=== PATIENT | female | born 1965 | race Caucasian/White ===

== ENCOUNTER 2016-07-13 08:23 | Outpatient (CLI) | payer BC ==
[2016-07-13 12:48] LABS: Hemoglobin A1c 4.8 % (4.0-6.0)
[2016-07-13 12:50] LABS: ALT (SGPT) 94 U/L (0-55); AST (SGOT) 65 U/L (5-34); Alkaline Phosphatase 92 U/L (40-150); Anion Gap 15 mmol/L (10-20); BUN (Urea Nitrogen) 13 mg/dL (9.8-20.1); Bilirubin, Total 0.7 mg/dL (0.2-1.2); Calc. Creatinine Clearance 0 mL/min (70-130); Calcium 9.5 mg/dL (7.8-10.44); Carbon Dioxide 20 mmol/L (22-29); Chloride 111 mmol/L (98-107); Estimated GFR-MDRD Greater than 90; Globulin 3.6 g/dL (2.4-3.5); LDL Cholesterol, Calculated 44 mg/dL
[2016-07-13 12:53] LABS: Bilirubin Negative (Negative); Blood, Urine Negative (Negative); Glucose, Urine (Dipstick) Negative (Negative); Ketone, Urine Trace mg/dL (Negative); Nitrite Negative (Negative); Protein, Urine (Dipstick) Negative (Neg-Trace); Urobilinogen 0.2 mg/dL (0.2-1.0)
[2016-07-13 14:09] LABS: Bacteria/HPF Rare-Few HPF (None Seen); RBC/HPF None Seen HPF (0-3); Squamous Epithelial 0-3 HPF (0-3)
[2016-07-13 15:02] LABS: Hematocrit 40.9 % (36.0-47.0); Macrocytosis SLIGHT = 6-15 cells (100X) (0-5/hpf); Mean Platelet Volume 7.5 fL (7.4-10.4); Neutrophil 56 % (42-75); Red Blood Cell (RBC) Count 3.81 mill/uL (4.20-5.40); White Blood Cell (WBC) Count 4.9 thou/uL (4.8-10.8)
== END 2016-07-13 08:24 ==
LOC: NAVSJIPCSP 08:23
PROVIDERS: ATTEND Internal Medicine
DX: Z51.81 Encounter for therapeutic drug level monitoring (principal); Z79.899 Other long term (current) drug therapy
CPT/HCPCS: 36415; 80053; 80061; 81003; 81015; 83036; 84443; 85025

== ENCOUNTER 2020-11-06 10:17 | Outpatient (CLI) | payer BC | END 2020-11-06 10:18 | disposition home or self-care (01) | LOC: NAV RAD 10:17 | PROVIDERS: ATTEND Family Medicine | DX: R07.81 Pleurodynia (principal); R09.1 Pleurisy | CPT/HCPCS: 71046 ==

== ENCOUNTER 2020-11-17 01:05 | Emergency (ER) | payer BC ==
[2020-11-17] MEDS ORDERED: Ketorolac Tromethamine 30 MG/ML VIAL ONE (01:23)
[2020-11-17] MEDS ORDERED: Ondansetron PF 4 MG/2 ML Vial ONE (01:50)
[2020-11-17] MEDS ORDERED: Acetaminophen/Codeine 30-300mg Tablet ONE (01:50)
[2020-11-17] MEDS ORDERED: methylPREDNISolone Sod Succ/PF 125 MG/2 ML VIAL ONE (02:23)
== END 2020-11-17 02:37 | disposition home or self-care (01) ==
LOC: NAV ERS 01:05
DX: R09.1 Pleurisy (principal); I10 Essential (primary) hypertension; F17.210 Nicotine dependence, cigarettes, uncomplicated
CPT/HCPCS: 71045; 93005; 96374; 96375; J1885; J2405; J2930

== ENCOUNTER → 2021-03-06 | Emergency (ER) | payer BC ==
[~2021-03-06] MED LIST: Cefepime 2 GM VIAL ONE; Metoclopramide HCl 10 MG/2 ML VIAL ONE; Sodium Chloride 0.9% 1,000 ML ONE; Sodium Chloride 0.9% 100 ML ONE; Sodium Chloride 0.9% 250 ML 250 ML ONE; Vancomycin HCl 500 MG VIAL ONE; diphenhydrAMINE 50 MG/ML VIAL ONE
[2021-03-06 14:28] LABS: ALT (SGPT) 26 U/L (8-55); AST (SGOT) 30 U/L (5-34); Albumin 4.1 g/dL (3.5-5.0); Alkaline Phosphatase 87 U/L (40-110); Anion Gap 13 mmol/L (10-20); BUN (Urea Nitrogen) 35 mg/dL (9.8-20.1); Bilirubin, Total 1.2 mg/dL (0.2-1.2); Calc. Creatinine Clearance 0 mL/min (70-130); Calcium 10.1 mg/dL (7.8-10.44); Carbon Dioxide 20 mmol/L (22-29); Chloride 106 mmol/L (98-107); Globulin 3.4 g/dL (2.4-3.5); Glucose 113 mg/dL (70-105); Potassium 3.7 mmol/L (3.5-5.1); Protein, Total 7.5 g/dL (6.0-8.3); Sodium 135 mmol/L (136-145)
[2021-03-06 14:35] LABS: Hemoglobin 12.7 g/dL (12.0-16.0); Mean Corpuscular HGB CONC 33.9 g/dL (32.0-36.0); Mean Corpuscular Hemoglobin 32.4 pg (27.0-31.0); Mean Corpuscular Volume 95.3 fL (78.0-98.0); Mean Platelet Volume 7.4 fL (7.4-10.4); Platelet Count 217 thou/uL (130-400); RBC Distribution Width 11.9 % (11.5-14.5); Red Blood Cell (RBC) Count 3.91 mill/uL (4.20-5.40); White Blood Cell (WBC) Count 20.4 thou/uL (4.8-10.8)
[2021-03-06 14:39] LABS: Lymphocytes 4 % (21-51); MDiff Complete? YES; Monocytes 8 % (0-10); Neutrophil 88 % (42-75); Platelet Morphology Comment Appears Adequate
[2021-03-06 15:48] LABS: Bilirubin Negative (Negative); Blood, Urine Negative (Negative); Clarity Slightly Cloudy (Clear); Glucose, Urine (Dipstick) Negative (Negative); Ketone, Urine Negative (Negative); Leukocyte Negative (Negative); Nitrite Negative (Negative); Protein, Urine (Dipstick) Negative (Neg-Trace); Urobilinogen 0.2 mg/dL (Less than 2)
== END ==
LOC: NAV ERS 12:52
DX: A41.9 Sepsis, unspecified organism (principal); I10 Essential (primary) hypertension; F17.210 Nicotine dependence, cigarettes, uncomplicated; Z79.899 Other long term (current) drug therapy
CPT/HCPCS: 71045; 80053; 81003; 83605; 85025; 87040; 96365; 96367; 96375; J0692; J1200; J2765; J3370; J3490; J7050

== ENCOUNTER 2021-12-23 09:14 | Emergency (ER) | payer BC ==
[2021-12-23] MEDS ORDERED: Pantoprazole 40 MG VIAL ONE (10:18)
[2021-12-23] MEDS ORDERED: Sodium Chloride 0.9% 1,000 ML ONE ×2 (10:18→11:47)
[2021-12-23] MEDS ORDERED: Acetaminophen 500 MG TAB ONE (10:18)
[2021-12-23 10:40] LABS: #Lymphocytes 1.3 thou/uL (1.20-3.40); #Monocytes 0.5 thou/uL (0.11-0.59); #Neutrophils 5.1 thou/uL (1.40-6.50); %Basophils 0.4 % (0.0-1.0); %Eosinophils 0.3 % (0.0-10.0); %Lymphocytes 19.2 % (21.0-51.0); %Monocytes 7.2 % (0.0-10.0); %Neutrophils 72.9 % (42.0-75.0); Hemoglobin 12.3 g/dL (12.0-16.0); Mean Corpuscular HGB CONC 31.3 g/dL (32.0-36.0); Mean Corpuscular Hemoglobin 31.2 pg (27.0-31.0); Mean Corpuscular Volume 99.6 fL (78.0-98.0); Mean Platelet Volume 7.9 fL (7.4-10.4); Platelet Count 167 thou/uL (130-400); RBC Distribution Width 12.9 % (11.5-14.5); Red Blood Cell (RBC) Count 3.93 mill/uL (4.20-5.40)
[2021-12-23 10:47] LABS: ALT (SGPT) 20 U/L (8-55); AST (SGOT) 22 U/L (5-34); Albumin 4.4 g/dL (3.5-5.0); Alkaline Phosphatase 90 U/L (40-110); Anion Gap 25 mmol/L (10-20); BUN (Urea Nitrogen) 65 mg/dL (9.8-20.1); Bilirubin, Total 0.4 mg/dL (0.2-1.2); Calc. Creatinine Clearance 0 mL/min (70-130); Carbon Dioxide 10 mmol/L (22-29); Chloride 104 mmol/L (98-107); Globulin 3.1 g/dL (2.4-3.5); Glucose 97 mg/dL (70-105); Potassium 3.9 mmol/L (3.5-5.1); Protein, Total 7.5 g/dL (6.0-8.3); Sodium 135 mmol/L (136-145)
[2021-12-23 11:11] LABS: Bilirubin Negative (Negative); Blood, Urine Small (Negative); Clarity Clear (Clear); Glucose, Urine (Dipstick) Negative (Negative); Ketone, Urine Negative (Negative); Leukocyte Negative (Negative); Nitrite Negative (Negative); Protein, Urine (Dipstick) 100 mg/dL (Neg-Trace); Specific Gravity, Urine 1.025 (1.005-1.030); Urobilinogen 0.2 mg/dL (Less than 2); pH, Urine 5.5 (5.0-9.0)
[2021-12-23 11:18] LABS: RBC/HPF 0-3 HPF (0-3); Squamous Epithelial 0-3 HPF (0-3); WBC/HPF 0-3 HPF (0-3)
[2021-12-23 12:40] LABS: Base Excess-Venous -20.1 mmol/L (-2.0 to 3.0); Bicarbonate (HCO3v) 8.9 mmol/L (22.0-28.0); CO2 Tension (PvCO2) 30.8 mmHg (42.0-51.0); Chloride 113 mmol/L (98-107); Hemoglobin - Calc 10.9 g/dL (12.0-16.0); Potassium 3.6 mmol/L (3.5-5.1); Sodium 136 mmol/L (138-145); T. Carbon Dioxide 9.8 mmol/L (22.0-28.0); vO2 Saturation-calc 64.2 % (60.0-85.0)
[2021-12-23] MEDS ORDERED: Lactated Ringer's 1,000 ML ONE (12:41)
[2021-12-23] MEDS ORDERED: Norepinephrine 4 MG/4 ML VIAL ONE (12:42)
[2021-12-23] MEDS ORDERED: Dextrose 5% in Water 250 ML ONE (12:42)
[2021-12-23] MEDS ORDERED: Sodium Bicarb 50 MEQ/50 ML Abboject 8.4% SYRINGE ONE (13:17)
[2021-12-23] MEDS ORDERED: Dextrose 5% in Water 1,000 ML ONE ×2 (13:17→13:19)
[2021-12-23] MEDS ORDERED: Fentanyl 100 MCG/2 ML VIAL ONE (13:31)
== END 2021-12-23 14:21 | disposition short-term general hospital (02) ==
LOC: NAV ERS 09:14
DX: N17.9 Acute kidney failure, unspecified (principal); J01.20 Acute ethmoidal sinusitis, unspecified; J01.10 Acute frontal sinusitis, unspecified; E86.0 Dehydration; I95.9 Hypotension, unspecified; E86.9 Volume depletion, unspecified; Z79.899 Other long term (current) drug therapy; I10 Essential (primary) hypertension; F17.210 Nicotine dependence, cigarettes, uncomplicated
CPT/HCPCS: 70450; 71045; 74176; 80053; 81003; 81015; 82330; 82803; 83605; 84443; 84484; 85025; 93005; 96361; 96365; 96368; 96375; C9113; J3010; J7050; J7070; J7120